=== PATIENT | female | born 1975 | race African-American/Black ===

== ENCOUNTER 2023-05-13 18:01 | Emergency (ER) | payer MEDICAID ==
[~2023-05-13] VITALS: Ht 170.2 cm; Wt 82.0 kg
[2023-05-13 18:19] VITALS: O2SAT 98
[2023-05-13] MEDS ORDERED: IBUPROFEN 400MG TABLET PO ONE (19:15)
[2023-05-13] MEDS ORDERED: ONDANSETRON HCL 4MG/2ML INJ IV STA (20:09)
[2023-05-13] MEDS ORDERED: MORPHINE SULFATE 4 MG/ML CPJ (NOT FOR IM USE) IV STA (20:09)
[2023-05-13] MEDS ORDERED: SODIUM CHLORIDE 0.9% 1,000 ML IV ONE (20:15)
[2023-05-13 20:45] LABS: BASOPHILS % 0.3 % (0.0-2.0); EOSINOPHILS % 0.4 % (0.0-5.0); HEMATOCRIT. 41.8 % (36.0-48.0); LYMPHOCYTES % 9.6 % (20.0-50.0); MEAN CORPUSCULAR HEMOGLOBIN 29.1 pg (28.0-32.0); MEAN CORPUSCULAR VOLUME 86.9 fL (81.0-99.0); MEAN PLATELET VOLUME 9.4 fl (7.4-10.4); MONOCYTES % 3.5 % (2.0-8.0); NEUTROPHILS % 86.2 % (40.0-76.0); PLATELET 232 x1000/uL (130-400); RED BLOOD CELL COUNT 4.81 mill/uL (4.2-5.4); RED CELL DISTRIBUTION WIDTH 12.9 % (11.6-14.6)
[2023-05-13 20:54] LABS: CHLORIDE 103 mEq/L (98-107)
[2023-05-13 21:03] LABS: PARTIAL THROMBOPLASTIN TIME 24.9 sec (23.4-31.0); PROTHROMBIN TIME 10.6 sec (9.6-11.0)
[2023-05-13] MEDS ORDERED: MORPHINE SULFATE 4 MG/ML CPJ (NOT FOR IM USE) IV ONE (21:15)
[2023-05-13] MEDS ORDERED: ETOMIDATE 2MG/ML 10ML VIAL IV ONE (21:15)
[2023-05-14] MEDS ORDERED: HYDR-4001 MT (00:08)
[2023-05-14] MEDS ORDERED: IBUP-2028 MT (00:08)
[2023-05-14 01:13] VITALS: BP 132/68; PULSE 72; RESP 12; TEMP 98.3
== END 2023-05-14 01:32 | disposition home or self-care (01) ==
LOC: ER 18:01 → EDSEX 18:01 → SUPCPDRO 22:36 → ER 05-14 01:32 → CANBEDREQ 05-14 19:52
DX: S82.851A Displaced trimalleolar fracture of right lower leg, initial encounter for closed fracture (principal); M25.571 Pain in right ankle and joints of right foot; M79.671 Pain in right foot; E11.9 Type 2 diabetes mellitus without complications; W22.8XXA Striking against or struck by other objects, initial encounter; Y93.89 Activity, other specified; Y92.89 Other specified places as the place of occurrence of the external cause; Y99.8 Other external cause status; Z20.822 Contact with and (suspected) exposure to COVID-19
CPT/HCPCS: 27818; 36415; 73610; 73630; 80053; 85025; 85610; 85730; 86850; 86900; 86901; 87426; 96361; 96374; 99152; 99285; C9803; J2270; J2405; J3490; J7030; Z7610